=== PATIENT | female | born 1975 | race Caucasian/White ===

== ENCOUNTER 2017-04-23 02:37 | Emergency (ER) | payer MEDICAID, OTHER ==
[~2017-04-23] VITALS: Ht 162.6 cm; Wt 96.0 kg
[2017-04-23 02:41] VITALS: Ht 162.6 cm; Wt 96.0 kg
--- NOTE | 2017-04-23 03:09 | ERD ---
ER Documentation Chief Complaint Date/Time DATE: 04/23/17 TIME: 03:05 Chief Complaint 10 wks , vag bleeding w/ clots x 1 day HPI A0. 10 weeks , LMP: February 11, 2017. DYLLAN: November 18, 2017. 41-year-old female presents emergency department for vaginal bleeding, lower abdominal pain, lower back pain for 1 day. Patient stated that she passed a one big clot of blood vaginally today. Had a lower abdominal and lower back pain prior to vaginal bleeding. Nauseous with no vomiting. Denies headache, loss of consciousness, dizziness, blurry vision, changes in vision, photophobia, facial pain, ear pain, throat pain, difficulty swallowing, neck pain, shoulder pain, chest pain, cough, hemoptysis, loss of appetite, nausea, vomiting, hematochezia, diarrhea, constipation, symptoms, bladder and bowel incontinences, extremity weakness, extremity tenderness, numbness or tingling sensation, difficulty walking, recent travel, recent exposure to illness, recent antibiotic use in the last 3 months, fever, chills. Allergy: No known drug allergies. PMH: Hypertension. Family medical history: Denies. AO LMP: February 11, 2017. DYLLAN: November 18, 2017. Medications: Iron. Patient stated that she was on anti-hypertensive pills prior to but her OB doctor discontinued this. Surgery: Denies. 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 Denies smoking, use of alcohol, use of illegal drugs. ROS All systems reviewed and are negative except as per history of present illness. Medications Home Meds Active Scripts Acetaminophen* (Tylophen*) 500 Mg Capsule, 1 CAP PO Q6H Y for PAIN AND OR ELEVATED TEMP, #20 CAP Prov:MARYJO LOYOLA F 04/23/17 Multivit/Min/Fol Ac/Iron/Pren* ( S*) 1 Tab Tab, 1 TAB PO DAILY, #30 TAB Prov:MARYJO LOYOLA F 04/23/17 Allergies Allergies: Coded Allergies: No Known Allergy (Unverified , 04/23/17) Physical Exam Vitals Vital Signs Date Time Temp Pulse Resp B/P Pulse Ox O2 Delivery O2 Flow Rate FiO2 04/23/17 06:46 98.3 61 20 121/68 98 Room Air 04/23/17 02:41 97.8 75 20 150/74 100 Physical Exam CONSTITUTIONAL: Well-appearing; well-nourished; in no apparent distress. HEAD: Normocephalic; atraumatic. EYES: Conjunctiva clear, sclera non-icteric, EOM intact. PERRL Ears: Hearing intact. EACs clear, TMs non-bulging, non-inflamed, translucent & mobile, ossicles normal appearance, No obstructions, no erythema, no discharges Nose: No obstructions. No polyps. No external lesions. Mucosa non-inflamed. No external lesions, septum and turbinates normal. No rhinorrhea. No discharges. Frontal sinus is non-tender to palpation. Maxillary sinus is non-tender to palpation. MOUTH: Moist mucous membranes, no lesion, no obstructions, no vesicles, no thrush, patent airway Throat: Uvula in midline. Right tonsil is +1 with no erythema, no exudate. Left tonsil is +1 with no erythema, no exudate. Tolerating secretions well. Good gag reflex. Patent airway. Neck: Supple, without lesions, bruits, or adenopathy. No mass. Thyroid non- enlarged and non-tender to palpation. CHEST: Symmetrical chest. Respirations even and not labored. No retractions noted. CARDIOVASCULAR: Normal S1, S2. RRR. No murmurs, gallops. RESPIRATORY: Normal chest excursion with respiration; breath sounds clear and equal bilaterally; no wheezes, rhonchi, or rales. Breathing even and unlabored. Speaking in clear, full, and complete sentences w/ ease. ABDOMEN: Normal bowel sounds normal. Soft, round, non-distended, non-guarding, no tenderness, no rebound, no organomegaly, no masses, no pulsating abdominal mass. No hernia. No peritoneal signs. : No CVA tenderness. BACK: Symmetrical shoulder. Spine is midline without deformity, tenderness. No evidence of trauma or deformity. PELVIS: Stable pelvis. No evidence of trauma or deformity. MUSCULOSKELETAL: Normal gait and station. No misalignment, asymmetry, crepitation, defects, tenderness, masses, effusions, decreased range of motion, instability, atrophy or abnormal strength or tone in the head, neck, spine, ribs , pelvis or extremities. No calf tenderness. NEUROVASCULAR: Distal pulses are present. Pedal pulse are present, equal, and normal. Capillary refills are < 2 seconds. NEUROLOGIC: Alert and oriented x4. Speaks full and clear sentences. Cranial Nerves II-XII normal. Sensation to pain, touch, and proprioception normal. Grossly unremarkable. No neurologic deficits. Romberg test is negative. PSYCHOLOGICAL: The patients mood and manner are appropriate. No hallucinations , delusions. Not SI. Not HI. Has the capacity to decide for self SKIN: Normal for age and ethnicity; warm; dry; good turgor; no apparent lesions or exudates. No rashes, hives, discoloration. Intact. No skin tenting. Result Diagram: 04/23/17 0330 04/23/17 0330 Results 24 hrs Laboratory Tests Test 04/23/17 03:30 White Blood Count 6.510^3/ul Red Blood Count 4.2210^6/ul Hemoglobin 10.2g/dl Hematocrit 32.0% Mean Corpuscular Volume 75.8fl Mean Corpuscular Hemoglobin 24.2pg Mean Corpuscular Hemoglobin Concent 31.9g/dl Red Cell Distribution Width 18.9% Platelet Count 89890^3/UL Mean Platelet Volume 10.0fl Neutrophils % 60.6% Lymphocytes % 30.8% Monocytes % 6.5% Eosinophils % 1.4% Basophils % 0.2% Nucleated Red Blood Cells % 0.0/100WBC Neutrophils # (Manual) 410^3/ul Lymphocytes # 2.010^3/ul Monocytes # 0.410^3/ul Eosinophils # 0.110^3/ul Basophils # 0.010^3/ul Nucleated Red Blood Cells # 0.010^3/ul Prothrombin Time 13.0Sec Prothrombin Time Ratio 1.0 INR International Normalized Ratio 0.98 Activated Partial Thromboplast Time 27.0Sec Urine Color YELLOW Urine Clarity CLEAR Urine pH 5.0 Urine Specific [place] 1.023 Urine Ketones NEGATIVEmg/dL Urine Nitrite NEGATIVEmg/dL Urine Bilirubin NEGATIVEmg/dL Urine Urobilinogen NEGATIVEmg/dL Urine Leukocyte Esterase NEGATIVELeu/ul Urine Microscopic RBC 3/HPF Urine Microscopic WBC 3/HPF Urine Squamous Epithelial Cells FEW/HPF Urine Bacteria FEW/HPF Urine Mucus FEW/HPF Urine Hemoglobin 2+mg/dL Urine Glucose NEGATIVEmg/dL Urine Total Protein NEGATIVEmg/dl Sodium Level 137mmol/L Potassium Level 4.4mmol/L Chloride Level 106mmol/L Carbon Dioxide Level 20mmol/L Anion Gap 15 Blood Urea Nitrogen 7mg/dl Creatinine 0.51mg/dl Glucose Level 90mg/dl Calcium Level 9.1mg/dl Total Bilirubin 0.7mg/dl Direct Bilirubin 0.00mg/dl Indirect Bilirubin 0.7mg/dl Aspartate Amino Transf (AST/SGOT) 23IU/L Alanine Aminotransferase (ALT/SGPT) 16IU/L Alkaline Phosphatase 80IU/L Total Protein 8.2g/dl Albumin 4.2g/dl Globulin 4.00g/dl Albumin/Globulin Ratio 1.05 Amylase Level 104U/L Lipase 84U/L Beta HCG, Quantitative 500764.0mIU/ml Current Medications Medications (Trade) Dose Ordered Sig/Carlos Route PRN Reason Start Time Stop Time Status Last Admin Dose Admin Ondansetron HCl (Zofran Odt) 4 mg ONCE STAT ODT 04/23/17 03:16 04/23/17 03:18 DC 04/23/17 03:58 Acetaminophen (Tylenol Tab) 500 mg ONCE STAT PO 04/23/17 03:16 04/23/17 03:18 DC 04/23/17 03:58 Procedures/MDM Examination: Please see physical examination. Disease process, medical treatment was explained to the patient and family member. They verbalized understanding and agreed with the diagnostic tests, medical treatment, and follow-up care. Radiology: OB ultrasound Impression: Single live intrauterine with an estimated gestational age of 9 weeks and 5 days, with an ultrasound DYLLNA of 11/21/2017. Bilateral ovaries not visualized. Blood works: Reviewed. POC urine : Positive. Urinalysis: Reviewed. Treatment: Tylenol. Re-evaluation: Denies headache, dizziness, blurry vision, neck pain, shoulder pain, chest pain, back pain, abdominal pain, nausea, vomiting. No episode of emesis in the emergency department. Alert and oriented 4. Speaks full and clear sentences. Respirations even and unlabored. Lung sounds clear to auscultation. Active bowel sounds. There is no right upper/right lower/ epigastric/left upper/left lower abdominal tenderness and light and deep palpation. Negative on Rovsings sign. Negative [place] sign. No peritoneal signs. Ambulatory with steady gait. No neurovascular deficits. No neurological deficits. Consultation: None. Differential diagnosis: Ectopic versus abnormal versus vaginal bleeding Medical decision making: A0. 10 weeks , LMP: February 11, 2017. DYLLAN: November 18, 2017. 41-year-old female presents emergency department for vaginal bleeding, lower abdominal pain, lower back pain for 1 day. Patient stated that she passed a one big clot of blood vaginally today. Had a lower abdominal and lower back pain prior to vaginal bleeding. Nauseous with no vomiting. Patient' s complaint, patient's history about her complaint, my physical findings, my reevaluation are consistent my final diagnosis of vaginal bleeding . Patient agreed to follow-up with her OB in the next 24-48 hours. Medications prescribed are the following: vitamins. Tylenol. Patient and family member are made aware of the side effects and adverse reactions of the medications prescribed. Instructed on when to seek emergent and medical attention in case allergic/anaphylactic reactions or severe side effects and or adverse reactions to medications. Patient and family member verbalized understanding. Patient instructed Instructed to follow-up with his PCP in 24-48 hours. Follow-up with OB in the next 24-48 hours. Instructed to Call 911 for chest pain, shortness of breath. Advised to come back here in ED as soon as possible for severity of symptoms which includes but not limited to: any new symptoms; shortness of breath/difficulty of breathing; cardiovascular changes; severe gastrointestinal symptoms; signs and symptoms of bleeding and or infection; signs of compartment syndrome/neurovascular changes; neurological changes/deficits. Patient and family member verbalized understanding. Upon discharge, patient is alert and oriented x 4, speaks full and clear sentences, denies pain, has no neurological deficits, has no neurovascular deficits, difficulty of breathing. Breathing even and unlabored. Lung sounds are clear to auscultation. Not in distress. Appears comfortable. Ambulatory with steady gait. Appears satisfied with care provided here in ED. Departure Diagnosis: Primary Impression: Vaginal bleeding in patient at less than 20 weeks gestation Condition: Stable Additional Instructions: Instructed to follow-up with his PCP in 24-48 hours. Follow-up with OB in the next 24-48 hours. Instructed to Call 911 for chest pain, shortness of breath. Advised to come back here in ED as soon as possible for severity of symptoms which includes but not limited to: any new symptoms; shortness of breath/difficulty of breathing; cardiovascular changes; severe gastrointestinal symptoms; signs and symptoms of bleeding and or infection; signs of compartment syndrome/neurovascular changes; neurological changes/deficits. Patient and family member verbalized understanding. MARYJO LOYOLA Apr 23, 2017 03:09
[2017-04-23] MEDS ORDERED: ACETAMINOPHEN 500 MG TAB PO STA (03:16)
[2017-04-23] MEDS ORDERED: ONDANSETRON (ODT) 4 MG TAB ODT STA (03:16)
[2017-04-23 04:04] LABS: BASOPHILS % 0.2 % (0.0-2.0); EOSINOPHILS # 0.1 10^3/ul (0.0-0.5); EOSINOPHILS % 1.4 % (0.0-7.0); HEMOGLOBIN 10.2 g/dl (12.0-16.0); LYMPHOCYTES % 30.8 % (15.0-51.0); MEAN CORPUSCULAR HEMOGLOBIN 24.2 pg (29.0-33.0); MEAN CORPUSCULAR HGB CONC 31.9 g/dl (32.0-37.0); MEAN CORPUSCULAR VOLUME 75.8 fl (82.0-101.0); MONOCYTE # 0.4 10^3/ul (0.3-0.9); MONOCYTES % 6.5 % (0.0-11.0); NEUTROPHILS % 60.6 % (39.0-77.0); PLATELET COUNT 290 10^3/UL (140-415); RED BLOOD COUNT 4.22 10^6/ul (4.20-5.40); RED CELL DISTRIBUTION WIDTH 18.9 % (11.5-14.5); WHITE BLOOD COUNT 6.5 10^3/ul (4.8-10.8)
[2017-04-23 04:06] LABS: POSITIVE DIFF @See below
[2017-04-23 04:09] LABS: INR 0.98
[2017-04-23 04:13] LABS: ADD UMIC YES; ALBUMIN 4.2 g/dl (3.3-4.9); ALBUMIN/GLOBULIN RATIO 1.05; BILIRUBIN,INDIRECT 0.7 mg/dl (0-1.1); BILIRUBIN,TOTAL 0.7 mg/dl (0.2-1.3); CALCIUM 9.1 mg/dl (8.4-10.2); CREATININE 0.51 mg/dl (0.44-1.00); POTASSIUM 4.4 mmol/L (3.5-5.1); TOTAL PROTEIN 8.2 g/dl (6.1-8.1); UR ASCORBIC ACID NEGATIVE (NEGATIVE); UR BACTERIA FEW /HPF (NONE SEEN); UR BILIRUBIN (Dip) NEGATIVE (NEGATIVE); UR BLOOD (Dip) 2+ mg/dL (NEGATIVE); UR CLARITY CLEAR (CLEAR); UR COLOR YELLOW (YELLOW); UR GLUCOSE (Dip) NEGATIVE (NEGATIVE); UR KETONES (Dip) NEGATIVE (NEGATIVE); UR LEUKOCYTE ESTERASE (Dip) NEGATIVE Leu/ul (NEGATIVE); UR MUCUS FEW /HPF (NONE SEEN); UR NITRITE (Dip) NEGATIVE (NEGATIVE); UR RBC 3 /HPF (0-5); UR SPECIFIC GRAVITY (Dip) 1.023 (1.003-1.030); UR SQUAMOUS EPITHELIAL CELL FEW /HPF (FEW); UR TOTAL PROTEIN (Dip) NEGATIVE (NEGATIVE); UR UROBILINOGEN (Dip) NEGATIVE (NEGATIVE)
--- NOTE | 2017-04-23 06:00 | RADRPT ---
PROCEDURE: Obstetrical ultrasound. CLINICAL INDICATION: Vaginal spotting. TECHNIQUE: Multiple sonographic images of the pelvis were obtained with transabdominal technique. Images were obtained with smith scale and color Doppler. COMPARISON: No prior studies are available for comparison. FINDINGS: There is an intrauterine gestational sac with a pole identified. heart tones of 161 beat s per minute are identified. The crown-rump length averages 2.80 cm, compatible with 9 weeks a nd 4 days. The mean sac diameter averages 4.09 cm, compatible with 9 weeks and 5 days. A yolk sac is not visualized. No subchorionic collection is identified. There is no pelvic free fluid. Bilateral ovaries are not visualized. There is no suspicious adnexal mass identified. IMPRESSION: Single live intrauterine with an estimated gestational age of 9 weeks and 5 days, with an ultrasound DYLLAN of 11/21/2017. Bilateral ovaries not visualized. .Mohsen Coppola MD, MD Date Time Electronically viewed and signed by .Mohsen Coppola MD, on 04/23/2017 06:00 .T/
[2017-04-23] MEDS ORDERED: ACET500C5 PO (06:24)
[2017-04-23] MEDS ORDERED: PRENAT PO (06:24)
[2017-04-23 06:46] VITALS: BP 121/68; PULSE 61; RESP 20; TEMP 98.3
== END 2017-04-23 06:47 | disposition home or self-care (01) ==
LOC: FTE 02:37
DX: O20.9 Hemorrhage in early pregnancy, unspecified (principal); O10.011 Pre-existing essential hypertension complicating pregnancy, first trimester; Z3A.09 9 weeks gestation of pregnancy
CPT/HCPCS: 36415; 76801; 80053; 81001; 82150; 83690; 84702; 85025; 85610; 85730; 86900; 86901; 87086; Z7502; Z7610